=== PATIENT | female | born 1960 | race African-American/Black ===

== ENCOUNTER 2017-04-02 17:29 | Emergency (ER) | payer MEDICARE, MEDICAID ==
[~2017-04-02] VITALS: Ht 162.6 cm; Wt 70.0 kg
[2017-04-02] MEDS ORDERED: RISP1 PO (17:36)
[2017-04-02] MEDS ORDERED: FLUO-191 PO (17:36)
[2017-04-02] MEDS ORDERED: LISI-662 PO (17:36)
[2017-04-02] MEDS ORDERED: HYDR25TA PO (17:36)
[2017-04-02] MEDS ORDERED: LISINOPRIL 10 MG TABLET PO ONE (18:15)
[2017-04-02] MEDS ORDERED: HYDROCHLOROTHIAZIDE 25 MG TABLET PO ONE (18:15)
[2017-04-02 20:12] VITALS: BP 150/94
== END 2017-04-02 20:15 | disposition home or self-care (01) ==
LOC: EMS 17:30
DX: I10 Essential (primary) hypertension (principal); F17.210 Nicotine dependence, cigarettes, uncomplicated; Z76.0 Encounter for issue of repeat prescription
CPT/HCPCS: 99283

== ENCOUNTER 2021-12-03 16:08 | Emergency (ER) | payer OTHER ==
[~2021-12-03] VITALS: Ht 162.6 cm; Wt 70.9 kg
[~2021-12-03 16:08] MED LIST: FLUO-191 PO; HYDR25TA2 PO; LISI-894 PO; RISP1TAB48 PO
[2021-12-03] MEDS: ACETAMINOPHEN 500 MG TABLET PO ONE ×2 (17:20→17:28)
[2021-12-03 17:34] VITALS: BP 146/111
== END 2021-12-03 19:01 | disposition home or self-care (01) ==
LOC: EMS 16:23
DX: S09.90XA Unspecified injury of head, initial encounter (principal); I10 Essential (primary) hypertension; F32.9 Major depressive disorder, single episode, unspecified; F17.210 Nicotine dependence, cigarettes, uncomplicated; Z79.899 Other long term (current) drug therapy; Y04.0XXA Assault by unarmed brawl or fight, initial encounter; Y93.89 Activity, other specified; Y92.89 Other specified places as the place of occurrence of the external cause; Y99.8 Other external cause status
CPT/HCPCS: 70450; 72125; 99284

== ENCOUNTER 2023-04-09 17:38 | Inpatient (IN) | payer MEDICARE, MEDICAID ==
[~2023-04-09] VITALS: Ht 162.6 cm; Wt 70.3 kg
[~2023-04-09 17:38] MED LIST changes: +FLUO-177 PO; -FLUO-191 PO
[2023-04-09 18:21] LABS: BASOPHILS % (AUTO) 0.6 % (0.0-2.0); EOSINOPHILS % (AUTO) 1.2 % (1.0-6.0); HEMATOCRIT 41.8 % (36-46); HEMOGLOBIN 14.2 g/dL (12.0-16.0); LYMPHOCYTES # (AUTO) 2.5 K/uL (1.0-4.8); LYMPHOCYTES % (AUTO) 28.1 % (22.0-44.0); MEAN CORPUSCULAR HGB CONC 33.9 G/dL (31.0-37.0); MEAN CORPUSCULAR VOLUME 92 fL (80-100); MONOCYTES # (AUTO) 0.7 K/uL (0.1-1.0); MONOCYTES % (AUTO) 8.1 % (2.0-9.0); NEUTROPHILS # (AUTO) 5.6 K/uL (1.8-7.7); PLATELET COUNT (AUTO) 396 K/uL (150-450); RED BLOOD CELL COUNT(AUTO) 4.57 MIL/uL (4.00-5.20); RED CELL DISTRIBUTION WIDTH 12.9 % (11.5-14.5)
[2023-04-09 18:44] LABS: ANION GAP 11 mmol/L (8-16); CALCIUM, TOTAL 9.2 mg/dL (8.8-10.5); CARBON DIOXIDE 28 mmol/L (22-29); CHLORIDE 99 mmol/L (98-107); CREATININE 1.12 mg/dL (0.60-1.30); GLOMERULAR FILTR. RATE CALC 60 mL/min (>60); GLUCOSE,RANDOM 181 mg/dL (70-110); POTASSIUM 3.1 mmol/L (3.5-5.1); SODIUM SERUM 138 mmol/L (136-145)
[2023-04-09] MEDS ORDERED: POTASSIUM CHLORIDE 20 MEQ ER TABLET PO ONE (18:45)
[2023-04-09 18:49] LABS: ALANINE AMINOTRANSFERASE 17 U/L (12-78); ALKALINE PHOSPHATASE 158 U/L (46-116); ASPARTATE AMINOTRANSFERASE 16 U/L (15-37); BILIRUBIN,TOTAL 0.5 mg/dL (0.1-1.0); TOTAL PROTEIN, SERUM 8.1 g/dL (6.4-8.2)
[2023-04-09 19:35] LABS: COVID AG,FIA SOURCE NASOPHARYNGEAL
[2023-04-09] MEDS ORDERED: HALOPERIDOL 5 MG TABLET PO ONE (19:45)
[2023-04-10 00:14] VITALS: BP 122/83; PULSE 83; RESP 18; TEMP 96.5
[2023-04-10 00:35] VITALS: BP 122/83; PULSE 83; RESP 18; TEMP 96.5
[2023-04-10] MEDS ORDERED: CloNIDine HCL 0.1 MG TABLET PO PRN (06:45)
[2023-04-10] MEDS ORDERED: ONDANSETRON HCL 4 MG TABLET PO PRN (06:45)
[2023-04-10] MEDS ORDERED: NICOTINE 14 MG/24 HOUR PATCH TD PRN (06:45)
[2023-04-10] MEDS ORDERED: GuaiFENesin/D-METHORPHAN [SUGAR-FREE] 200-20MG/10 ML SYRUP UDCUP PO PRN (06:45)
[2023-04-10] MEDS ORDERED: MAGNESIUM HYDROXIDE SUSPENSION 30 ML UDCUP PO PRN (06:45)
[2023-04-10] MEDS ORDERED: ALBUTEROL SULFATE HFA 90 MCG/PUFF 8 GM INHALER IH PRN (06:45)
[2023-04-10] MEDS ORDERED: IBUPROFEN 400 MG TABLET PO PRN (06:45)
[2023-04-10] MEDS ORDERED: LOPERAMIDE HCL 2 MG CAPSULE PO PRN (06:45)
[2023-04-10] MEDS ORDERED: DOCUSATE SODIUM 100 MG CAPSULE PO PRN (06:45)
[2023-04-10] MEDS ORDERED: MAG HYDROX/AL HYDROX/SIMETH ES 30 ML SUSPENSION UDCUP PO PRN (06:45)
[2023-04-10] MEDS ORDERED: PETROLATUM,WHITE 28 GM JELLY TP PRN (06:45)
[2023-04-10] MEDS: HYDROCHLOROTHIAZIDE 25 MG TABLET PO SCH (08:24)
[2023-04-10] MEDS: LISINOPRIL 20 MG TABLET PO SCH (08:25)
[2023-04-10 08:26] VITALS: BP 107/76; PULSE 71; RESP 16; TEMP 97.1; O2SAT 96
[2023-04-10] MEDS ORDERED: BUPR-49 PO (12:02)
[2023-04-10] MEDS ORDERED: QUET100T34 PO (12:02)
[2023-04-10] MEDS ORDERED: DULO-113 PO (12:02)
[2023-04-10] MEDS ORDERED: ATOR40TA71 PO (12:09)
[2023-04-10] MEDS ORDERED: MIRT-92 PO (12:09)
[2023-04-10] MEDS ORDERED: QUET25TA36 PO (12:09)
[2023-04-10] MEDS ORDERED: AMLO10TA55 PO (12:09)
[2023-04-10] MEDS ORDERED: PRAZ1 PO (12:09)
[2023-04-10] MEDS: DULoxetine HCL 60 MG CAPSULE PO SCH (12:23)
[2023-04-10 20:11] VITALS: BP 118/83; PULSE 84; RESP 18; TEMP 98.4; O2SAT 97
[2023-04-10] MEDS: QUEtiapine FUMARATE 100 MG TABLET PO SCH (20:25)
[2023-04-11 07:27] LABS: HEMOGLOBIN A1C 6.4 % (3.8-5.6)
[2023-04-11 07:48] LABS: CHOL/HDL RATIO 6.3 (3.9-5.7); THYROID STIMULATING HORMONE 0.6 uIU/mL (0.36-3.74)
[2023-04-11 08:14] VITALS: BP 121/80; PULSE 86; RESP 18; TEMP 98; O2SAT 96
[2023-04-11] MEDS: HYDROCHLOROTHIAZIDE 25 MG TABLET PO SCH (08:22)
[2023-04-11] MEDS: LISINOPRIL 20 MG TABLET PO SCH (08:23)
[2023-04-11] MEDS: DULoxetine HCL 60 MG CAPSULE PO SCH (08:23)
[2023-04-11] MEDS: BuPROPion HCL XL 150 MG ER TABLET PO SCH (08:23)
[2023-04-11 20:15] VITALS: BP 113/80; PULSE 90; RESP 20; TEMP 97.8; O2SAT 96
[2023-04-11] MEDS: QUEtiapine FUMARATE 100 MG TABLET PO SCH (20:15)
[2023-04-12 08:24] VITALS: RESP 16; O2SAT 97
[2023-04-12] MEDS: LISINOPRIL 20 MG TABLET PO SCH (08:24)
[2023-04-12] MEDS: BuPROPion HCL XL 150 MG ER TABLET PO SCH (08:24)
[2023-04-12] MEDS: DULoxetine HCL 60 MG CAPSULE PO SCH (08:24)
[2023-04-12] MEDS: HYDROCHLOROTHIAZIDE 25 MG TABLET PO SCH (08:24)
[2023-04-12 08:47] VITALS: BP 109/92; PULSE 84; RESP 16; TEMP 98; O2SAT 97
[2023-04-12 09:24] VITALS: RESP 18
[2023-04-12] MEDS ORDERED: DiphenhydrAMINE HCL 50 MG/ML VIAL ONE (16:28)
[2023-04-12] MEDS ORDERED: LORazepam 2 MG/ML VIAL ONE (16:28)
[2023-04-12] MEDS ORDERED: HALOPERIDOL LACTATE 5 MG/ML VIAL ONE (16:29)
[2023-04-12] MEDS ORDERED: LORazepam 2 MG/ML VIAL IM ONE (17:45)
[2023-04-12] MEDS ORDERED: DiphenhydrAMINE HCL 50 MG/ML VIAL IM ONE (17:45)
[2023-04-12] MEDS ORDERED: HALOPERIDOL LACTATE 5 MG/ML VIAL IM ONE (17:45)
[2023-04-12] MEDS: QUEtiapine FUMARATE 100 MG TABLET PO SCH (20:28)
[2023-04-12 21:36] VITALS: BP 118/66; PULSE 72; TEMP 97.7; O2SAT 96
[2023-04-13] MEDS: DULoxetine HCL 60 MG CAPSULE PO SCH (08:25)
[2023-04-13] MEDS: HYDROCHLOROTHIAZIDE 25 MG TABLET PO SCH (08:25)
[2023-04-13] MEDS: BuPROPion HCL XL 150 MG ER TABLET PO SCH (08:25)
[2023-04-13] MEDS: LISINOPRIL 20 MG TABLET PO SCH (08:25)
[2023-04-13 08:55] VITALS: RESP 18
[2023-04-13] MEDS: QUEtiapine FUMARATE 100 MG TABLET PO SCH (20:08)
[2023-04-13 20:24] VITALS: BP 131/92; PULSE 91; RESP 19; TEMP 97.6; O2SAT 98
[2023-04-14] MEDS: DULoxetine HCL 60 MG CAPSULE PO SCH (08:16)
[2023-04-14] MEDS: LISINOPRIL 20 MG TABLET PO SCH (08:17)
[2023-04-14] MEDS: BuPROPion HCL XL 150 MG ER TABLET PO SCH (08:17)
[2023-04-14] MEDS: HYDROCHLOROTHIAZIDE 25 MG TABLET PO SCH (08:17)
[2023-04-14 08:54] VITALS: BP 104/71; PULSE 88; RESP 18; TEMP 97.6; O2SAT 96
[2023-04-14] MEDS: LORazepam 2 MG TABLET PO PRN (15:35)
[2023-04-14] MEDS: QUEtiapine FUMARATE 100 MG TABLET PO SCH (20:10)
[2023-04-14 20:26] VITALS: BP 112/87; PULSE 78; RESP 18; TEMP 98; O2SAT 96
[2023-04-15 08:31] VITALS: BP 149/87; PULSE 69; RESP 16; TEMP 97.5; O2SAT 96
[2023-04-15] MEDS: BuPROPion HCL XL 150 MG ER TABLET PO SCH (08:48)
[2023-04-15] MEDS: HYDROCHLOROTHIAZIDE 25 MG TABLET PO SCH (08:48)
[2023-04-15] MEDS: LISINOPRIL 20 MG TABLET PO SCH (08:48)
[2023-04-15] MEDS: DULoxetine HCL 60 MG CAPSULE PO SCH (08:48)
[2023-04-15] MEDS: QUEtiapine FUMARATE 100 MG TABLET PO SCH (20:16)
[2023-04-15 20:17] VITALS: BP 145/82; PULSE 71; RESP 18; TEMP 97.6; O2SAT 99
[2023-04-15] MEDS: LORazepam 2 MG TABLET PO PRN (20:22)
[2023-04-16 08:17] VITALS: RESP 18
[2023-04-16] MEDS: LISINOPRIL 20 MG TABLET PO SCH (08:32)
[2023-04-16] MEDS: HYDROCHLOROTHIAZIDE 25 MG TABLET PO SCH (08:32)
[2023-04-16] MEDS: DULoxetine HCL 60 MG CAPSULE PO SCH (08:32)
[2023-04-16] MEDS: BuPROPion HCL XL 150 MG ER TABLET PO SCH (08:32)
[2023-04-16 20:15] VITALS: BP 135/70; PULSE 68; RESP 16; TEMP 97.8; O2SAT 96
[2023-04-16] MEDS: QUEtiapine FUMARATE 100 MG TABLET PO SCH (20:55)
[2023-04-16] MEDS: ZOLPIDEM TARTRATE 10 MG TABLET PO PRN (20:55)
[2023-04-17] MEDS: LISINOPRIL 20 MG TABLET PO SCH (08:09)
[2023-04-17] MEDS: HYDROCHLOROTHIAZIDE 25 MG TABLET PO SCH (08:09)
[2023-04-17] MEDS: BuPROPion HCL XL 150 MG ER TABLET PO SCH (08:09)
[2023-04-17] MEDS: DULoxetine HCL 60 MG CAPSULE PO SCH (08:10)
[2023-04-17 08:33] VITALS: RESP 18
[2023-04-17] MEDS: LORazepam 2 MG TABLET PO PRN ×2 (12:41→20:33)
[2023-04-17 20:09] VITALS: BP 132/68; PULSE 78; RESP 18; TEMP 97.7; O2SAT 96
[2023-04-17] MEDS: QUEtiapine FUMARATE 100 MG TABLET PO SCH (20:26)
[2023-04-17] MEDS: ZOLPIDEM TARTRATE 10 MG TABLET PO PRN (20:33)
[2023-04-18] MEDS: LISINOPRIL 20 MG TABLET PO SCH (08:19)
[2023-04-18] MEDS: DULoxetine HCL 60 MG CAPSULE PO SCH (08:19)
[2023-04-18] MEDS: BuPROPion HCL XL 150 MG ER TABLET PO SCH (08:19)
[2023-04-18] MEDS: HYDROCHLOROTHIAZIDE 25 MG TABLET PO SCH (08:19)
[2023-04-18 08:39] VITALS: BP 120/80; PULSE 77; RESP 18; TEMP 98.1; O2SAT 98
[2023-04-18 16:52] VITALS: BP 150/93; PULSE 92; RESP 18; TEMP 97.8
[2023-04-18] MEDS: HALOPERIDOL 5 MG TABLET PO PRN (16:52)
[2023-04-18] MEDS: LORazepam 2 MG TABLET PO PRN (16:52)
[2023-04-18] MEDS: QUEtiapine FUMARATE 100 MG TABLET PO SCH (20:02)
[2023-04-18 20:03] VITALS: BP 142/86; PULSE 76; RESP 17; TEMP 97.5
[2023-04-19 08:11] VITALS: BP 134/88; PULSE 78; RESP 18; TEMP 98.2; O2SAT 98
[2023-04-19] MEDS: DULoxetine HCL 60 MG CAPSULE PO SCH (08:20)
[2023-04-19] MEDS: BuPROPion HCL XL 150 MG ER TABLET PO SCH (08:20)
[2023-04-19] MEDS: LISINOPRIL 20 MG TABLET PO SCH (08:20)
[2023-04-19] MEDS: HYDROCHLOROTHIAZIDE 25 MG TABLET PO SCH (08:21)
[2023-04-19] MEDS: AmLODIPine BESYLATE 10 MG TABLET PO SCH (10:12)
[2023-04-19] MEDS: LORazepam 2 MG TABLET PO PRN (15:53)
[2023-04-19] MEDS: QUEtiapine FUMARATE 100 MG TABLET PO SCH (20:13)
[2023-04-19 21:39] VITALS: BP 129/84; PULSE 71; RESP 17; TEMP 97.6; O2SAT 97
[2023-04-20] MEDS: DULoxetine HCL 60 MG CAPSULE PO SCH (08:14)
[2023-04-20] MEDS: BuPROPion HCL XL 150 MG ER TABLET PO SCH (08:14)
[2023-04-20] MEDS: LISINOPRIL 20 MG TABLET PO SCH (08:14)
[2023-04-20] MEDS: AmLODIPine BESYLATE 10 MG TABLET PO SCH (08:14)
[2023-04-20] MEDS: HYDROCHLOROTHIAZIDE 25 MG TABLET PO SCH (08:14)
[2023-04-20 08:37] VITALS: RESP 18
[2023-04-20] MEDS: HALOPERIDOL 5 MG TABLET PO PRN ×2 (15:00→20:51)
[2023-04-20 20:03] VITALS: RESP 20
[2023-04-20] MEDS: QUEtiapine FUMARATE 100 MG TABLET PO SCH (20:50)
[2023-04-21 08:09] VITALS: RESP 18
[2023-04-21] MEDS: DULoxetine HCL 60 MG CAPSULE PO SCH (08:15)
[2023-04-21] MEDS: AmLODIPine BESYLATE 10 MG TABLET PO SCH (08:15)
[2023-04-21] MEDS: HYDROCHLOROTHIAZIDE 25 MG TABLET PO SCH (08:15)
[2023-04-21] MEDS: LISINOPRIL 20 MG TABLET PO SCH (08:15)
[2023-04-21] MEDS: HALOPERIDOL 5 MG TABLET PO PRN (08:15)
[2023-04-21] MEDS: BuPROPion HCL XL 150 MG ER TABLET PO SCH (08:15)
[2023-04-21] MEDS: QUEtiapine FUMARATE 100 MG TABLET PO SCH (20:16)
[2023-04-21 22:26] VITALS: RESP 18
[2023-04-22 08:16] VITALS: BP 153/103; PULSE 83; RESP 16; TEMP 97.9; O2SAT 96
[2023-04-22] MEDS: BuPROPion HCL XL 150 MG ER TABLET PO SCH (08:52)
[2023-04-22] MEDS: DULoxetine HCL 60 MG CAPSULE PO SCH (08:52)
[2023-04-22] MEDS: AmLODIPine BESYLATE 10 MG TABLET PO SCH (09:17)
[2023-04-22] MEDS: LISINOPRIL 20 MG TABLET PO SCH (09:17)
[2023-04-22] MEDS: HYDROCHLOROTHIAZIDE 25 MG TABLET PO SCH (09:28)
[2023-04-22] MEDS: ACETAMINOPHEN 325 MG TABLET PO PRN (16:57)
[2023-04-22 20:03] VITALS: BP 138/86; PULSE 73; RESP 17; TEMP 97.6
[2023-04-22] MEDS: QUEtiapine FUMARATE 100 MG TABLET PO SCH (20:23)
[2023-04-23] MEDS: BuPROPion HCL XL 150 MG ER TABLET PO SCH (08:16)
[2023-04-23] MEDS: DULoxetine HCL 60 MG CAPSULE PO SCH (08:16)
[2023-04-23] MEDS: AmLODIPine BESYLATE 10 MG TABLET PO SCH (08:16)
[2023-04-23] MEDS: LISINOPRIL 20 MG TABLET PO SCH (08:17)
[2023-04-23] MEDS: HALOPERIDOL 5 MG TABLET PO PRN (08:17)
[2023-04-23] MEDS: HYDROCHLOROTHIAZIDE 25 MG TABLET PO SCH (08:17)
[2023-04-23 08:33] VITALS: BP 130/91; PULSE 87; RESP 17; TEMP 97.5; O2SAT 98
[2023-04-23] MEDS: QUEtiapine FUMARATE 100 MG TABLET PO SCH (17:02)
[2023-04-23 21:16] VITALS: BP 142/86; PULSE 90; RESP 18; TEMP 98.1; O2SAT 97
[2023-04-24] MEDS: DULoxetine HCL 60 MG CAPSULE PO SCH (08:16)
[2023-04-24] MEDS: HYDROCHLOROTHIAZIDE 25 MG TABLET PO SCH (08:16)
[2023-04-24] MEDS: LISINOPRIL 20 MG TABLET PO SCH (08:16)
[2023-04-24] MEDS: AmLODIPine BESYLATE 10 MG TABLET PO SCH (08:17)
[2023-04-24] MEDS: BuPROPion HCL XL 150 MG ER TABLET PO SCH (08:17)
[2023-04-24 08:40] VITALS: BP 123/91; PULSE 97; RESP 17; TEMP 97.6; O2SAT 99
[2023-04-24] MEDS: QUEtiapine FUMARATE 100 MG TABLET PO SCH (20:05)
[2023-04-24] MEDS: HALOPERIDOL 5 MG TABLET PO PRN (20:05)
[2023-04-24 20:20] VITALS: BP 130/79; PULSE 82; RESP 20; TEMP 97.8; O2SAT 98
[2023-04-25] MEDS: DULoxetine HCL 60 MG CAPSULE PO SCH (08:14)
[2023-04-25] MEDS: AmLODIPine BESYLATE 10 MG TABLET PO SCH (08:15)
[2023-04-25] MEDS: BuPROPion HCL XL 150 MG ER TABLET PO SCH (08:15)
[2023-04-25] MEDS: LISINOPRIL 20 MG TABLET PO SCH (08:15)
[2023-04-25] MEDS: HYDROCHLOROTHIAZIDE 25 MG TABLET PO SCH (08:16)
[2023-04-25 08:27] VITALS: RESP 18
[2023-04-25] MEDS: HALOPERIDOL 5 MG TABLET PO PRN (12:17)
[2023-04-25] MEDS ORDERED: LORazepam 2 MG/ML VIAL IM ONE (14:30)
[2023-04-25] MEDS ORDERED: DiphenhydrAMINE HCL 50 MG/ML VIAL ONE (14:30)
[2023-04-25] MEDS ORDERED: HALOPERIDOL LACTATE 5 MG/ML VIAL ONE (14:30)
[2023-04-25] MEDS ORDERED: LORazepam 2 MG/ML VIAL ONE (14:30)
[2023-04-25] MEDS ORDERED: HALOPERIDOL LACTATE 5 MG/ML VIAL IM ONE (14:30)
[2023-04-25] MEDS ORDERED: DiphenhydrAMINE HCL 50 MG/ML VIAL IM ONE (14:30)
[2023-04-25 15:49] VITALS: BP 126/70; PULSE 72; RESP 17; TEMP 98; O2SAT 97
[2023-04-25 20:00] VITALS: BP 102/68; PULSE 82; RESP 18; TEMP 97.6; O2SAT 96
[2023-04-25] MEDS: QUEtiapine FUMARATE 100 MG TABLET PO SCH (20:20)
[2023-04-26] MEDS: DULoxetine HCL 60 MG CAPSULE PO SCH (08:08)
[2023-04-26] MEDS: BuPROPion HCL XL 150 MG ER TABLET PO SCH (08:08)
[2023-04-26] MEDS: HYDROCHLOROTHIAZIDE 25 MG TABLET PO SCH (08:08)
[2023-04-26] MEDS: AmLODIPine BESYLATE 10 MG TABLET PO SCH (08:08)
[2023-04-26] MEDS: LISINOPRIL 20 MG TABLET PO SCH (08:08)
[2023-04-26 08:41] VITALS: BP 108/78; PULSE 85; RESP 16; TEMP 98.4; O2SAT 97
[2023-04-26] MEDS: QUEtiapine FUMARATE 100 MG TABLET PO SCH (20:11)
[2023-04-26 20:30] VITALS: BP 125/89; PULSE 91; RESP 16; TEMP 98
[2023-04-27 08:15] VITALS: BP 114/78; PULSE 94; RESP 18; TEMP 98.4
[2023-04-27] MEDS: AmLODIPine BESYLATE 10 MG TABLET PO SCH (08:18)
[2023-04-27] MEDS: BuPROPion HCL XL 150 MG ER TABLET PO SCH (08:18)
[2023-04-27] MEDS: DULoxetine HCL 60 MG CAPSULE PO SCH (08:18)
[2023-04-27] MEDS: HYDROCHLOROTHIAZIDE 25 MG TABLET PO SCH (08:19)
[2023-04-27] MEDS: LISINOPRIL 20 MG TABLET PO SCH (08:19)
[2023-04-27 08:30] VITALS: RESP 18
[2023-04-27] MEDS: HALOPERIDOL 5 MG TABLET PO PRN ×2 (12:15→20:16)
[2023-04-27] MEDS: QUEtiapine FUMARATE 100 MG TABLET PO SCH (20:16)
[2023-04-27 21:02] VITALS: BP 132/95; PULSE 88; RESP 17; TEMP 97.7; O2SAT 97
[2023-04-28 08:13] VITALS: BP 118/85; PULSE 88; RESP 17; TEMP 97.6; O2SAT 99
[2023-04-28] MEDS: LISINOPRIL 20 MG TABLET PO SCH (08:22)
[2023-04-28] MEDS: HYDROCHLOROTHIAZIDE 25 MG TABLET PO SCH (08:22)
[2023-04-28] MEDS: AmLODIPine BESYLATE 10 MG TABLET PO SCH (08:23)
[2023-04-28] MEDS: BuPROPion HCL XL 150 MG ER TABLET PO SCH (08:23)
[2023-04-28] MEDS: DULoxetine HCL 60 MG CAPSULE PO SCH (08:23)
[2023-04-28] MEDS: HALOPERIDOL 5 MG TABLET PO PRN (13:59)
[2023-04-28] MEDS: ACETAMINOPHEN 325 MG TABLET PO PRN (16:54)
[2023-04-28 20:09] VITALS: BP 144/92; PULSE 106; RESP 9; TEMP 98; O2SAT 99
[2023-04-28] MEDS: QUEtiapine FUMARATE 100 MG TABLET PO SCH (20:24)
[2023-04-29 08:04] VITALS: BP 122/85; PULSE 85; RESP 17; TEMP 97.5; O2SAT 98
[2023-04-29] MEDS: BuPROPion HCL XL 150 MG ER TABLET PO SCH (08:05)
[2023-04-29] MEDS: HYDROCHLOROTHIAZIDE 25 MG TABLET PO SCH (08:05)
[2023-04-29] MEDS: LISINOPRIL 20 MG TABLET PO SCH (08:05)
[2023-04-29] MEDS: AmLODIPine BESYLATE 10 MG TABLET PO SCH (08:05)
[2023-04-29] MEDS: DULoxetine HCL 60 MG CAPSULE PO SCH (08:05)
[2023-04-29 08:28] VITALS: BP 122/85; PULSE 86; RESP 17; TEMP 97.5; O2SAT 98
[2023-04-29] MEDS ORDERED: QUET100T PO (12:56)
== END 2023-04-29 15:15 | disposition home or self-care (01) | DRG 885 ==
LOC: EMS 17:40 → B3A 22:33
PROVIDERS: ADMIT Psychiatry & Neurology Psychiatry; ATTEND Psychiatry & Neurology Psychiatry
DX: F25.1 Schizoaffective disorder, depressive type (principal); I10 Essential (primary) hypertension; E87.6 Hypokalemia; E78.5 Hyperlipidemia, unspecified; R73.9 Hyperglycemia, unspecified; F12.10 Cannabis abuse, uncomplicated; F17.210 Nicotine dependence, cigarettes, uncomplicated; Z20.822 Contact with and (suspected) exposure to COVID-19
CPT/HCPCS: 80053; 80061; 83036; 84443; 85025; 99285; G0480; J1200; J1630; J2060